=== PATIENT | male | born 1965 | race Caucasian/White ===

== ENCOUNTER → 2017-01-22 | Outpatient (CLI) | payer OTHER ==
--- NOTE | 2017-01-22 14:18 | DIAGNOSTIC IMAGING REPORT ---
LEFT TOE(S) MIN 2 VIEWS CLINICAL HISTORY: Injury to Left 5th toe; told at Urgent Care that it was broken trauma. Pain. COMPARISON: None. DISCUSSION: Ankle fracture distal aspect proximal phalanx left fifth toe. No evidence of dislocation. Moderate soft tissue edema. There is no evidence for soft tissue swelling. IMPRESSION: Moderate angulation of an oblique fracture distal aspect proximal phalanx fifth toe. No evidence of dislocation. Electronically signed by: Foreign Luciano M.D. 01/22/2017 2:16 PM Dictated Date/Time: 01/22/2017 2:15 PM
== END | disposition home or self-care (01) ==
LOC: C.RDSM 08:00
PROVIDERS: ATTEND Physician Assistant
DX: S92.512A Displaced fracture of proximal phalanx of left lesser toe(s), initial encounter for closed fracture (principal); X58.XXXA Exposure to other specified factors, initial encounter

== ENCOUNTER → 2017-02-14 | Outpatient (CLI) | payer OTHER ==
--- NOTE | 2017-02-14 14:43 | DIAGNOSTIC IMAGING REPORT ---
Left fifth toe 3 views CLINICAL HISTORY: LEFT 5TH TOE FX COMPARISON: 01/22/2017 DISCUSSION: There is an oblique fracture involving the proximal phalanx of the fifth toe at the junction of middle distal one third. There is mild angulation at the fracture site. The fracture remains unchanged in alignment. Internal callus formation is suspected. IMPRESSION: No change in the alignment of the mildly angulated oblique fracture of the proximal phalanx of the left fifth toe. Early callus formation is suspected Electronically signed by: Sánchez Arredondo M.D. 02/14/2017 2:41 PM Dictated Date/Time: 02/14/2017 2:40 PM
== END | disposition home or self-care (01) ==
LOC: C.RDSM 08:00
PROVIDERS: ATTEND Physician Assistant
DX: S92.512A Displaced fracture of proximal phalanx of left lesser toe(s), initial encounter for closed fracture (principal); X58.XXXA Exposure to other specified factors, initial encounter

== ENCOUNTER → 2017-03-16 | Outpatient (CLI) | payer OTHER ==
--- NOTE | 2017-03-16 09:00 | DIAGNOSTIC IMAGING REPORT ---
LEFT FIFTH TOE 3 VIEWS CLINICAL HISTORY: Healing fracture. FINDINGS: 3 views of the left fifth toe are compared to study dated 02/14/2017. There is unchanged alignment of a minimally distracted and angulated healing fracture through the distal shaft of the fifth proximal phalanx. There is increasing bony bridging and periosteal reaction as compared to previous. Overlying soft tissue edema as well as complete resolved. No new fracture is seen. IMPRESSION: Unchanged alignment of a healing fifth proximal phalangeal fracture as compared to previous. Electronically signed by: Ronald Garner M.D. 03/16/2017 8:59 AM Dictated Date/Time: 03/16/2017 8:58 AM
== END | disposition home or self-care (01) ==
LOC: C.RDSM 09:00
PROVIDERS: ATTEND Physician Assistant
DX: S92.532D Displaced fracture of distal phalanx of left lesser toe(s), subsequent encounter for fracture with routine healing (principal); X58.XXXD Exposure to other specified factors, subsequent encounter